=== PATIENT | male | born 1930 | race Caucasian/White ===

== ENCOUNTER → 2018-04-26 | Outpatient (CLI) | payer OTHER ==
[2018-01-12 11:00] VITALS: BP 114/51
[~2018-04-26] MED LIST: ASPI-630 PO; ATOR10TA60 PO; CYAN10005 PO; Pantoprazole PO; TRAM50TA PO
--- NOTE | 2018-04-26 11:18 | RAD ---
CT of the chest without contrast 04/26/2018 INDICATION: History of removal of a left pectoral mass. COMPARISON STUDY: None Discussion: Multidetector CT imaging of the chest was performed without contrast. There is skin thickening and subcutaneous stranding noted in the left breast. Stranding extensive subcutaneous fat to the overlying pectoralis muscle which does not appear to be overtly thickened. Evaluation is somewhat limited by lack of contrast. Scattered small axillary nodes are known bilaterally. No pathologically enlarged axillary nodes are seen. Centrilobular emphysematous changes are noted throughout the bilateral lungs. No pneumothorax, pleural effusion, or focal consolidative infiltrate is seen. Heart size is normal. Scattered small mediastinal lymph nodes are noted without evidence of pathologically enlarged mediastinal adenopathy. Very dense coronary calcification is present. Prior median sternotomy noted. Limited visualization of the upper abdomen is unremarkable. Osseous changes are seen. Mild compression deformity T7 and very mild compression deformity of T9 noted. Findings are age indeterminate. Correlate with focal pain and point tenderness. IMPRESSION: 1. Skin thickening and mild subcutaneous edema in the left breast extending to the pectoralis musculature. Findings could reflect postoperative changes, in the appropriate clinical setting. 2. Mild compression deformity at T7 and very mild compression deformity at T9. Findings are age indeterminate.Correlate with focal pain and point tenderness CT DOSING PQRS STATEMENT: One or more of the following individualized dose reduction techniques were utilized for this examination: 1. Automated exposure control 2. Adjustment of the mA and/or kV according to patient size 3. Use of iterative reconstruction technique Electronically signed by: Yovani Muniz MD (04/26/2018 11:15 AM) [id number]
== END | disposition home or self-care (01) ==
LOC: CT 10:49
PROVIDERS: ATTEND Surgery
DX: R60.9 Edema, unspecified (principal); M43.8X4 Other specified deforming dorsopathies, thoracic region
CPT/HCPCS: 71250